=== PATIENT | male | born 1945 | race Caucasian/White ===

== ENCOUNTER 2025-07-06 14:44 | Outpatient (CLI) | payer MEDICARE ==
--- NOTE | 2025-07-06 16:26 | RADIOLOGY REPORT ---
PROCEDURE: MR MRI C SPINE Indication: MALIGNANT NEOPLASM OF PROSTATE COMPARISON: None TECHNIQUE: Multiplanar multisequence images of the the cervical spine are obtained. FINDINGS: Cervical vertebral body heights are maintained. Moderate multilevel disc space narrowing. There is a destructive lesion with increased stir/ T2 signal involving the C7 lamina and spinous process measuring 2.7 x 2.0 cm. Cervical alignment preserved. No prevertebral edema. Atlantooccipital, atlantoaxial articulations intact. Facet cystic changes at C4 on the right. C2-3: Small disc osteophyte complex. No spinal canal stenosis. Moderate right and mild left neural foraminal stenosis. C3-4: Right paracentral disc osteophyte complex. Narrowing of the ventral and dorsal CSF spaces. Thecal sac measures 9 mm AP. Mild spinal canal stenosis. Moderate right and mild left neural foraminal stenosis. C4-5: Disc osteophyte complex narrowing the ventral and dorsal CSF spaces. Thecal sac measures 7 mm AP. Moderate spinal canal stenosis. Moderate to severe right, moderate left neural foraminal stenosis. C5-6: Disc osteophyte complex narrowing the ventral and dorsal CSF spaces. Thecal sac measures 9 mm AP. Mild spinal canal stenosis. Moderate to severe bilateral neural foraminal stenosis, [id number]-right. C6-7: Disc osteophyte complex narrowing the ventral and dorsal CSF spaces. Thecal sac measures 8 mm AP. Yufi-[id number] spinal canal stenosis. Moderate to severe right and moderate left neural foraminal stenosis. C7-T1: Left paracentral disc osteophyte complex. No spinal canal stenosis. Mild left neural foraminal stenosis. IMPRESSION: Destructive lesion involving the C7 posterior elements and spinous process measuring 2.7 x 2.0 cm consistent with metastatic lesion. Moderate cervical degenerative disc disease. Moderate spinal canal stenosis C4-5. Gjve-ko-mwjhwzzh spinal canal stenosis C6-7 Mild spinal canal stenosis C3-4, C5-6 Multilevel neural foraminal stenosis and described.
[2025-07-06] MEDS ORDERED: GADOTERATE MEGLUMINE 7.5 MMOL/15 ML VIAL IV ONE (17:22)
== END 2025-07-06 23:59 | disposition home or self-care (01) ==
LOC: MRI 14:44
PROVIDERS: ATTEND Student in an Organized Health Care Education/Training Program
DX: M50.30 Other cervical disc degeneration, unspecified cervical region (principal); M48.03 Spinal stenosis, cervicothoracic region; M25.78 Osteophyte, vertebrae; C61 Malignant neoplasm of prostate
CPT/HCPCS: 72156; A9575